=== PATIENT | female | born 2000 | race Caucasian/White ===

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

== ENCOUNTER 2021-02-18 12:01 | Emergency (ER) | payer OTHER, MEDICAID ==
[~2021-02-18] VITALS: Ht 172 cm; Wt 85.7 kg
[~2021-02-18 12:01] MED LIST changes: +CYCL10TA9 PO; -SULF1TAB35 PO; +SULF1TAB38 PO
[2021-02-18 12:35] LABS: BILIRUBIN,URINE NEGATIVE (NEGATIVE); CLARITY,URINE CLEAR; COLOR,URINE YELLOW; GLUCOSE, URINE (UA) NEGATIVE (NEGATIVE); KETONES,URINE TRACE (NEGATIVE); LEUKOCYTE ESTERASE ,URINE 1+ (NEGATIVE); NITRITE,URINE NEGATIVE (NEGATIVE); PH,URINE 6.5 (5-9); PROTEIN,URINE NEGATIVE (NEGATIVE)
[2021-02-18 12:41] LABS: BASOPHILS % (AUTO) 0 % (0-10); EOSINOPHILS % (AUTO) 0 % (0-10); HEMATOCRIT 40 % (35-52); HEMOGLOBIN 12.9 g/dL (11.5-16.0); LYMPHOCYTES # (AUTO) 2.7 10^3/uL (1.0-4.0); LYMPHOCYTES % (AUTO) 27 % (12-44); MEAN CORPUSCULAR HEMOGLOBIN 30 pg (25-34); MEAN CORPUSCULAR HGB CONC 33 g/dL (32-36); MEAN CORPUSCULAR VOLUME 92 fL (80-99); MONOCYTES # (AUTO) 0.7 10^3/uL (0.0-1.0); MONOCYTES % (AUTO) 7 % (0-12); NEUTROPHILS # (AUTO) 6.5 10^3/uL (1.8-7.8); NEUTROPHILS % (AUTO) 65 % (42-75); PLATELET COUNT 250 10^3/uL (130-400); WHITE BLOOD COUNT 10.1 10^3/uL (4.3-11.0)
--- NOTE | 2021-02-18 12:41 | ED GI ---
General Chief Complaint: Abdominal/GI Problems Stated Complaint: ABD CRAMPING EST 6 WKS PREG Nursing Triage Note: Pt ambulatory to triage with visitor. Pt reports approx 7 weeks . Pt c/o generalized abd pain and n/v. Pt reports has had discomfort entire but had a sharp intensified pain this AM. 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 Source of Information: Patient Exam Limitations: No Limitations History of Present Illness Date Seen by Provider: Feb 18, 2021 Time Seen by Provider: 12:40 Initial Comments To ER with reports of diffuse abdominal pain onset this morning accompanied by nausea. She is about 7 weeks G1, P0. No vaginal bleeding. Her mother told her that there is a family history of "high risk pregnancies" and she should get checked out. Timing/Duration: 4-6 Hours Severity/Quality: Moderate Location: Generalized Abdomen Radiation: No Radiation Activities at Onset: None Associated Symptoms: Denies Symptoms Allergies and Home Medications Allergies Coded Allergies: No Known Drug Allergies (Unverified , 09/21/19) Home Medications Cyclobenzaprine HCl 10 Mg Tablet, 10 MG PO Q8H Prescribed by: MAGGIE PARDO on 12/12/20 1017 Sulfamethoxazole/Trimethoprim 1 Each Tablet, 1 EACH PO BID Prescribed by: KENDALL DILL on 09/21/19 0209 Patient Home Medication List Home Medication List Reviewed: Yes Review of Systems Review of Systems Constitutional: see HPI EENTM: No Symptoms Reported Respiratory: No Symptoms Reported Cardiovascular: No Symptoms Reported Gastrointestinal: See HPI Genitourinary: No Symptoms Reported Musculoskeletal: no symptoms reported Skin: no symptoms reported Psychiatric/Neurological: No Symptoms Reported Endocrine: No Symptoms Reported Hematologic/Lymphatic: No Symptoms Reported Past Szydtzw-Dwbfnt-Pddeby Hx Patient Social History Tobacco Use?: Yes Tobacco type used: Cigarettes Smoking Status: Current Someday Smoker Substance type: Marijuana Alcohol Use?: No Pt feels they are or have been: No Immunizations Up To Date Tetanus Booster (TDap): Less than 5yrs PED Vaccines UTD: Yes Seasonal Allergies Seasonal Allergies: Yes (POLLEN) Past Medical History Surgeries: No Respiratory: No Cardiac: No Neurological: No Last Menstrual Period: Jan 03, 2021 Genitourinary: No Gastrointestinal: No Musculoskeletal: No Endocrine: No HEENT: No Cancer: No Psychosocial: No Integumentary: No Blood Disorders: No Physical Exam Vital Signs Vital Signs - First Documented 02/18/21 12:07 Temp 36.1 Pulse 76 Resp 16 B/P (MAP) 126/69 (88) Pulse Ox 99 O2 Delivery Room Air Capillary Refill : Less Than 3 Seconds Height/Weight/BMI Height: '" Weight: lbs. oz. kg; 28.00 BMI Method: General Appearance: WD/WN, no apparent distress Respiratory: no respiratory distress, no accessory muscle use Cardiovascular: regular rate, rhythm, no murmur Gastrointestinal: normal bowel sounds, soft, tenderness Extremities: normal range of motion, non-tender Neurologic/Psychiatric: alert, normal mood/affect, oriented x 3 Skin: normal color, warm/dry Progress/Results/Core Measures Results/Orders Lab Results Laboratory Tests Test 02/18/21 12:26 02/18/21 12:33 Range/Units Urine Color YELLOW Urine Clarity CLEAR Urine pH 6.5 5-9 Urine Specific [place] 1.015 L 1.016-1.022 Urine Protein NEGATIVE NEGATIVE Urine Glucose (UA) NEGATIVE NEGATIVE Urine Ketones TRACE H NEGATIVE Urine Nitrite NEGATIVE NEGATIVE Urine Bilirubin NEGATIVE NEGATIVE Urine Urobilinogen 0.2 < = 1.0 MG/DL Urine Leukocyte Esterase 1+ H NEGATIVE Urine RBC (Auto) NEGATIVE NEGATIVE Urine RBC NONE /HPF Urine WBC 2-5 /HPF Urine Squamous Epithelial Cells 5-10 /HPF Urine Crystals NONE /LPF Urine Bacteria TRACE /HPF Urine Casts NONE /LPF Urine Mucus NEGATIVE /LPF Urine Culture Indicated NO White Blood Count 10.1 4.3-11.0 10^3/uL Red Blood Count 4.34 3.80-5.11 10^6/uL Hemoglobin 12.9 11.5-16.0 g/dL Hematocrit 40 35-52 % Mean Corpuscular Volume 92 80-99 fL Mean Corpuscular Hemoglobin 30 25-34 pg Mean Corpuscular Hemoglobin Concent 33 32-36 g/dL Red Cell Distribution Width 12.6 10.0-14.5 % Platelet Count 250 130-400 10^3/uL Mean Platelet Volume 10.0 9.0-12.2 fL Immature Granulocyte % (Auto) 0 % Neutrophils (%) (Auto) 65 42-75 % Lymphocytes (%) (Auto) 27 12-44 % Monocytes (%) (Auto) 7 0-12 % Eosinophils (%) (Auto) 0 0-10 % Basophils (%) (Auto) 0 0-10 % Neutrophils # (Auto) 6.5 1.8-7.8 10^3/uL Lymphocytes # (Auto) 2.7 1.0-4.0 10^3/uL Monocytes # (Auto) 0.7 0.0-1.0 10^3/uL Eosinophils # (Auto) 0.0 0.0-0.3 10^3/uL Basophils # (Auto) 0.0 0.0-0.1 10^3/uL Immature Granulocyte # (Auto) 0.0 0.0-0.1 10^3/uL Sodium Level 135 135-145 MMOL/L Potassium Level 3.7 3.6-5.0 MMOL/L Chloride Level 105 98-107 MMOL/L Carbon Dioxide Level 22 21-32 MMOL/L Anion Gap 8 5-14 MMOL/L Blood Urea Nitrogen 5 L 7-18 MG/DL Creatinine 0.60 0.60-1.30 MG/DL Estimat Glomerular Filtration Rate 129 BUN/Creatinine Ratio 8 Glucose Level 90 70-105 MG/DL Calcium Level 9.5 8.5-10.1 MG/DL Corrected Calcium 9.3 8.5-10.1 MG/DL Total Bilirubin 0.7 0.1-1.0 MG/DL Aspartate Amino Transf (AST/SGOT) 14 5-34 U/L Alanine Aminotransferase (ALT/SGPT) 14 0-55 U/L Alkaline Phosphatase 61 40-136 U/L C-Reactive Protein High Sensitivity 0.37 0.00-0.50 MG/DL Total Protein 7.1 6.4-8.2 GM/DL Albumin 4.2 3.2-4.5 GM/DL Human Chorionic Gonadotropin, Quant [id number] H <5 MIU/ML My Orders Orders - NESSA FOX NBA PLAYER Cbc With Automated Diff (02/18/21 12:28) Comprehensive Metabolic Panel (02/18/21 12:28) Hs C Reactive Protein (02/18/21 12:28) Ua Culture If Indicated (02/18/21 12:28) Hcg,Quantitative (02/18/21 12:28) Us Ob<14 Wks Sngle W/Transvag (02/18/21 13:33) Vital Signs/I&O 02/18/21 12:07 Temp 36.1 Pulse 76 Resp 16 B/P (MAP) 126/69 (88) Pulse Ox 99 O2 Delivery Room Air Blood Pressure Mean: 88 Departure Impression Primary Impression: Normal IUP (intrauterine ) on ultrasound Disposition: 01 HOME, SELF-CARE Condition: Stable Departure-Patient Inst. Decision time for Depature: 14:49 Referrals: LAMONT CARDENAS DO (PCP/Family) Primary Care Physician Patient Instructions: No Instuctions Given NESSA FOX APRN Feb 18, 2021 12:41
[2021-02-18 12:54] LABS: ALBUMIN 4.2 GM/DL (3.2-4.5); POTASSIUM 3.7 MMOL/L (3.6-5.0)
[2021-02-18 12:56] LABS: CALCIUM 9.5 MG/DL (8.5-10.1)
[2021-02-18 12:57] LABS: TOTAL PROTEIN 7.1 GM/DL (6.4-8.2)
[2021-02-18 12:59] LABS: BILIRUBIN,TOTAL 0.7 MG/DL (0.1-1.0)
[2021-02-18 13:00] LABS: CREATININE SERUM 0.6 MG/DL (0.60-1.30)
[2021-02-18 13:04] LABS: BACTERIA,URINE TRACE /HPF
[2021-02-18 14:52] VITALS: BP 114/62
--- NOTE | 2021-02-18 15:19 | Diagnostic Imaging Report ---
INDICATION: Pelvic pain. There is a single live IUP measuring approximately 6 weeks 4 days gestational age. The heart rate was recorded at 121 bpm. No ernesto-decidual sac hemorrhage is detected. Right and left adnexa are unremarkable. No adnexal mass or free fluid is detected. IMPRESSION: Single live IUP 6 weeks 4 days gestational age. Estimated date of confinement is sonographically is 10/08/2021. Dictated by: Dictated on workstation # [id number]
--- OUTSIDE RECORDS SUMMARY | 2021-02-18 22:29 | XMS REPORT | Clinical Summary ---
Author Author [facility] Organization [facility] Address Unknown Phone Unavailable Care Team Providers Care Radiator Specialist Name Role Phone Simi Hall MD PCP Malini Reno APRN Unavailable Source Comments Some departments are not documenting in the electronic medical record. If you d o not see the information that you expected, contact Release of Information in [facility] [place] [employer] Information Management department at [phone] for further assistan ce in locating additional records.[facility] Allergies No Known Active Allergies Medications End Date Status Medication Sig Dispensed Refills Start Date Active norethindrone ac-eth Take 1 tablet 0 estradiol (LOESTRIN 20 by mouth (21) PO) daily. Active buPROPion XL (WELLBUTRIN Take one 30 tablet 0 0 XL) 150 mg tablet tablet by 9 mouth every morning. Do not crush or chew. Active escitalopram oxalate Take one 30 tablet 0 07/30 (LEXAPRO) 10 mg tablet tablet by 9 mouth at bedtime daily. Active lamoTRIgine (LAMICTAL) Take one 30 tablet 0 150 mg tabletIndications: tablet by 9 depression associated mouth daily. with bipolar disorder Active methylphenidate CD Take one 30 capsule 0 01 (METADATE CD) 20 mg capsule by 9 capsule mouth daily after lunch Earliest Fill Date: 07/30/18 Active methylphenidate CR Take one 30 tablet 0 01 (CONCERTA) 54 mg tablet by 9 tabletIndications: mouth every attention-deficit morning hyperactivity disorder Earliest Fill Date: 07/30/18 Active traZODone (DESYREL) 100 Take one 30 tablet 0 01 /25/201 mg tablet tablet by 9 mouth at bedtime daily. Active Problems Problem Noted Date On oral contraceptive pills for non-contraception ind ication 07/26/2018 Myalgia 07/26/2018 Tetrahydrocannabinol (THC) use disorder, mild, abuse 07/26/2018 Attention deficit hyperactivity disorder (ADHD), comb ined type 07/26/2018 Major depressive disorder in full remission 07/26/19 19 DREA (generalized anxiety disorder) 07/26/2018 Social anxiety disorder 07/26/2018 Parent-child conflict 07/26/2018 Adjustment disorder with disturbance of conduct 07/07 Surgical History Surgery Date Site/Laterality Comments TONSILLECTOMY DENTAL SURGERY Medical History Medical History Date Comments Heavy menstrual period Thyroid disease Family History Medical History Relation Name Comments Cancer Maternal Aunt Cancer-Breast Maternal Aunt Cancer-Colon Maternal Aunt Cancer Maternal Grandmother Cancer-Breast Maternal Grandmother Clotting/bleeding Maternal Disorder Grandmother Heart Disease Maternal Grandmother Melanoma Maternal Grandmother Clotting/bleeding Mother Disorder Heart Disease Mother Cancer-Breast Other Cancer-Ovarian Neg Hx Cancer-Uterine Neg Hx Cervical Cancer Neg Hx Diabetes Neg Hx Hypertension Neg Hx Relation Name Status Comments Maternal Aunt Maternal Aunt Maternal Grandmother Mother Other Social History Date Tobacco Use Types Packs/Day Years Used Current Every Day Smoker Cigarettes Smokeless Tobacco: Never Used Comments Alcohol Use Standard Drinks/Week only drinks on special occasions Yes 4 (1 standard drink = 0.6 o z pure alcohol) Sex Assigned at Date Recorded Not on file Growth Chart Information Head Circum Date Age Height Weight 07/25/2018 18 years 171.5 cm (5' 90.2 kg (198 7.52") lb 12.8 oz) 11/06/2017 17 years 170.2 cm (5' 98.3 kg (216 7") lb 12.8 oz) Last Filed Vital Signs Reading Time Taken Comments Vital Sign 116/58 07/30/2018 7:45 AM BOX MA[employer]OD Blood Pressure 84 07/30/2018 7:45 AM [employer]OX [employer] Pulse 37.1 C (98.8 F) 07/30/2018 7:45 AM [employer]OX [employer] Temperature - - Respiratory Rate 99% 07/25/2018 11:00 PM [employer]OX [employer] Oxygen Saturation - - Inhaled Oxygen Concentration 90.2 kg (198 lb 12.8 oz) 07/25/2018 11:00 PM [employer]OX [employer] Weight 171.5 cm (5' 7.52") 07/25/2018 11:00 PM [employer]OX [employer] Height 30.66 07/25/2018 11:00 PM [employer]OX [employer] Body Mass Index Plan of Treatment Health Maintenance Due Date Last Done Comments HPV VACCINES (1 - 2-dose 2012 series) HIV SCREENING 2016 DTAP/TDAP VACCINES (1 - 2019 Tdap) HEPATITIS C SCREENING 2019 PHYSICAL (COMPREHENSIVE) 2019 EXAM INFLUENZA VACCINE 04/05/2021 MENINGOCOCCAL VACCINE Aged Out No longer eligib le based on patient's age to (ACWY,Menactra) complete this topic Results Not on filefrom Last 3 Months Insurance Type Payer Benefit Subscriber ID Effective Phone Address Plan / Dates Group Indemnity [facility] [id number] 2020-P CHOICE/CHO resent [employer] PLUS AETNA MEDICAID AETNA [id number] 2019-P BETTER resent [facility] [place] 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 necessary based on Dx 07/25/2018 11:54 PM Full Code 07/25/2018 11:54 PM Provider has discussed Code Status No, discussion no t w/Patient or Family? necessary based on Dx
== END 2021-02-18 14:52 | disposition home or self-care (01) ==
LOC: EDUNIT# 12:01 → ER 12:03
DX: O26.891 Other specified pregnancy related conditions, first trimester (principal); R10.84 Generalized abdominal pain; O21.9 Vomiting of pregnancy, unspecified; O99.331 Smoking (tobacco) complicating pregnancy, first trimester; F17.210 Nicotine dependence, cigarettes, uncomplicated; Z3A.01 Less than 8 weeks gestation of pregnancy
CPT/HCPCS: 36415; 76801; 76817; 80053; 81000; 84702; 85025; 86141

== ENCOUNTER → 2021-05-23 | Outpatient (CLI) | payer OTHER, MEDICAID ==
--- NOTE | 2021-05-23 11:38 | Diagnostic Imaging Report ---
INDICATION: survey. TECHNIQUE: Multiple real-time grayscale images were obtained over the gravid uterus. COMPARISON: None FINDINGS: There is a single live fetus in a cephalic presentation. heart rate was recorded at 143 bpm. Placenta is posterior and fundal. Amniotic fluid volume is normal. survey demonstrates kidneys, bladder and stomach to be unremarkable. There is a 4 chamber heart. A three-vessel cord with normal insertion. spine is unremarkable. brain is somewhat limited in evaluation due to position. In addition the heart and face anatomy was somewhat limited as well. Biometrical measurements are as follows: Biparietal 4.70 cm, age 20 weeks 2 days. Head circumference 17.42 cm, age 20 weeks 0 days. Abdominal circumference 15.11 cm, age 20 weeks 3 days. Femur length 3.48 cm, age 21 weeks 0 days. Sonographic estimate age: 20 weeks 3 days. Sonographic estimated date of delivery: 10/07/2021. Estimated Weight: 361 gm (+/- 53 gm). LMP percentile: 76%. heart rate: 143 beats per minute. number: 1 of 1. IMPRESSION: Single live IUP 20 weeks 3 days gestational age. Estimated date of confinement sonographically is 10/07/2021. survey is unremarkable although there is some suboptimal images of the brain, heart and face anatomy due to lie. Follow-up could be performed. Dictated by: Dictated on workstation # [id number]
== END ==
LOC: RAD 10:01
PROVIDERS: ATTEND Obstetrics & Gynecology
DX: Z34.02 Encounter for supervision of normal first pregnancy, second trimester (principal); Z3A.20 20 weeks gestation of pregnancy
CPT/HCPCS: 76805

== ENCOUNTER 2021-08-08 13:45 | Outpatient (CLI) | payer OTHER, MEDICAID ==
[~2021-08-08 13:45] MED LIST changes: +CYCL10TA25 PO; -CYCL10TA9 PO
[2021-08-08 14:44] VITALS: BP 106/57
[2021-08-08] MEDS ORDERED: ONDANSETRON 4 MG (ZOFRAN) ORAL DISSOLVE TAB PO ONE (15:30)
[2021-08-08] MEDS ORDERED: ACETAMINOPHEN 500 MG TAB (TYLENOL) PO ONE (15:30)
[2021-08-08] MEDS ORDERED: LACTATED RINGERS 1,000 ML IV SCH ×3 (15:30→17:30)
[2021-08-08] MEDS ORDERED: PREN1TAB19 PO (17:24)
[2021-08-08] MEDS ORDERED: FAMO-119 PO (17:25)
--- NOTE | 2021-08-09 09:32 | Physician Query-Final Dx ---
[facility]08/09/21 0932: Clinic Account Progress/Dx Physician Query: Please give diagnosis Please include # weeks gestation Date of Service Aug 08, 2021 at 13:45 DWIGHT COX MD 08/09/21 1123: Clinic Account Progress/Dx Physician Query: Please give diagnosis Date of Service 08/09/2021 DIAGNOSIS: Diagnosis: (1) Bacterial vaginosis in (2) 31 weeks gestation of Diagnosis Bacterial vaginosis in Intrauterine at 31 weeks gestation [facility]Aug 09, 2021 09:32 DWIGHT COX MD Aug 09, 2021 11:23
[2021-08-09] MEDS ORDERED: METR-145 PO ×2 (11:17)
== END 2021-08-08 17:35 | disposition home or self-care (01) ==
LOC: WSo 13:45 → LDRP 13:48 → WSo 17:35
PROVIDERS: ATTEND Obstetrics & Gynecology
DX: O23.593 Infection of other part of genital tract in pregnancy, third trimester (principal); B96.89 Other specified bacterial agents as the cause of diseases classified elsewhere; Z3A.31 31 weeks gestation of pregnancy
CPT/HCPCS: 87635; 96360; G0463; 99214

== ENCOUNTER 2021-08-09 09:57 | Outpatient (CLI) | payer OTHER, MEDICAID ==
[~2021-08-09] VITALS: Ht 175.3 cm; Wt 104.8 kg
[~2021-08-09 09:57] MED LIST changes: +FAMO-119 PO; +PREN1TAB19 PO
[2021-08-09 10:25] VITALS: BP 119/60
[2021-08-09 10:27] LABS: BILIRUBIN,URINE NEGATIVE (NEGATIVE); CLARITY,URINE CLOUDY; COLOR,URINE ORANGE; GLUCOSE, URINE (UA) NEGATIVE (NEGATIVE); KETONES,URINE 2+ (NEGATIVE); LEUKOCYTE ESTERASE ,URINE TRACE (NEGATIVE); NITRITE,URINE NEGATIVE (NEGATIVE); PH,URINE 8.5 (5-9); PROTEIN,URINE NEGATIVE (NEGATIVE)
[2021-08-09 10:36] LABS: BACTERIA,URINE NEGATIVE /HPF; WBC,URINE 0-2 /HPF
[2021-08-09] MEDS ORDERED: METR-145 PO ×2 (11:17)
[2021-08-09] MEDS ORDERED: metroNIDAZOLE 500 MG (FLAGYL) TAB PO SCH (21:00)
--- NOTE | 2021-08-12 07:55 | Physician Query-Final Dx ---
Clinic Account Progress/Dx Physician Query: Please give diagnosis Please include # weeks gestation Date of Service Aug 09, 2021 at 09:57 ,JulAug 12, 2021 07:55
== END 2021-08-09 11:30 | disposition home or self-care (01) ==
LOC: WSo 09:57 → LDRP 09:59 → WSo 11:30
PROVIDERS: ATTEND Obstetrics & Gynecology
DX: Z34.90 Encounter for supervision of normal pregnancy, unspecified, unspecified trimester (principal); Z3A.00 Weeks of gestation of pregnancy not specified
CPT/HCPCS: 81000; 87210; G0463; 99213

== ENCOUNTER 2021-09-14 17:56 | Outpatient (CLI) | payer OTHER, MEDICAID ==
[~2021-09-14] VITALS: Ht 175.3 cm; Wt 109.1 kg
[~2021-09-14 17:56] MED LIST changes: +METR-145 PO
[2021-09-14 18:20] LABS: BILIRUBIN,URINE NEGATIVE (NEGATIVE); CLARITY,URINE SL CLOUDY; COLOR,URINE YELLOW; GLUCOSE, URINE (UA) NEGATIVE (NEGATIVE); KETONES,URINE NEGATIVE (NEGATIVE); LEUKOCYTE ESTERASE ,URINE TRACE (NEGATIVE); NITRITE,URINE NEGATIVE (NEGATIVE); PROTEIN,URINE NEGATIVE (NEGATIVE)
[2021-09-14 18:27] LABS: BACTERIA,URINE FEW /HPF; SQUAMOUS EPITHELIAL CELL,UR 0-2 /HPF; WBC,URINE 0-2 /HPF
[2021-09-14 18:30] VITALS: BP 125/66
[2021-09-14] MEDS ORDERED: FAMO40TA6 PO (18:45)
[2021-09-14] MEDS ORDERED: ACETAMINOPHEN 500 MG TAB (TYLENOL) PO PRN (19:00)
[2021-09-14] MEDS ORDERED: LACTATED RINGERS 1,000 ML IV SCH (19:00)
[2021-09-14] MEDS ORDERED: ONDANSETRON 4 MG/2 ML (SDV) Z0FRAN IVP ONE (19:00)
[2021-09-14] MEDS ORDERED: ONDANSETRON 4 MG/2 ML (SDV) Z0FRAN ONE (19:13)
[2021-09-14 20:30] VITALS: BP 123/68
== END 2021-09-14 20:30 ==
LOC: WSo 17:56 → LDRP 17:58 → WSo 20:30
PROVIDERS: ATTEND Obstetrics & Gynecology
DX: Z34.90 Encounter for supervision of normal pregnancy, unspecified, unspecified trimester (principal); Z3A.00 Weeks of gestation of pregnancy not specified
CPT/HCPCS: 81000; 96361; 96374; 99213

== ENCOUNTER 2021-10-03 14:53 | Inpatient (IN) | payer OTHER, MEDICAID ==
[2021-10-03] VITALS (21 sets, daily range): BP systolic 91–151; BP diastolic 46–103
[~2021-10-03] VITALS: Ht 175.3 cm; Wt 111.7 kg
[~2021-10-03 14:53] MED LIST changes: +FAMO40TA6 PO
[2021-10-03 15:26] LABS: BILIRUBIN,URINE NEGATIVE (NEGATIVE); CLARITY,URINE CLEAR; COLOR,URINE YELLOW; GLUCOSE, URINE (UA) NEGATIVE (NEGATIVE); KETONES,URINE NEGATIVE (NEGATIVE); LEUKOCYTE ESTERASE ,URINE NEGATIVE (NEGATIVE); NITRITE,URINE NEGATIVE (NEGATIVE); PROTEIN,URINE NEGATIVE (NEGATIVE)
[2021-10-03 15:48] LABS: BACTERIA,URINE NEGATIVE /HPF; SQUAMOUS EPITHELIAL CELL,UR RARE /HPF; WBC,URINE RARE /HPF
[2021-10-03 15:49] LABS: AMORPHOUS SEDIMENT,UR MOD AMOR PHOSPHATE /LPF
--- NOTE | 2021-10-03 16:49 | History & Physical-OB ---
OB - Chief Complaint & HPI Date/Time Date of Admission: Date of Admission: Date seen by a Provider: Oct 03, 2021 Time Seen by a Provider: 16:35 Chief Complaint/History OB-Reason for Admission/Chief: Onset of Labor Hx : 1 Hx Para: 0 Expected Date of Delivery: Oct 10, 2021 Gestational Age in Weeks: 39 Gestational Age in Days: 0 Other reason for admission: B pos Antibody neg RI RPR NR HBsAg NR HIV NR GC neg GBS neg Admission Nurse Assessment Rev: Yes Allergies and Home Medications Allergies Coded Allergies: No Known Drug Allergies (Unverified , 09/21/19) Patient Home Medication List Home Medication List Reviewed: Yes Famotidine (Famotidine) 40 Mg Tablet, 40 MG PO HS, (Reported) Entered as Reported by: MIK MEDRANO on 09/14/211844 Last Action: Reviewed Vit/Iron Fumarate/FA ( Vitamins Tablet) 1 Each Tablet, 1 EACH PO DAILY, (Reported) Entered as Reported by: YUE ORNELAS on 08/08/211723 Last Action: Reviewed OB - History Hx of Present Care: Yes Ultrasounds: Normal mid trimester US Obstetrical Complications: None Medical Complications: None Obstetrical History Hx : 1 Patient Past Medical History n/a Social History/Family History Alcohol Use: Denies Use Recreational Drug Use: Yes 2nd Hand Smoke Exposure: No Immunizations Influenza Vaccine Up-to-Date: Yes; Up-to-Date Tetanus Booster (TDap): Less than 5yrs OB - Admission Exam Physical Exam Vitals: Vital Signs 10/03/21 15:13 Temp 36.0 Pulse 72 Resp 18 Pulse Ox 96 O2 Delivery Room Air HEENT: NCAT Heart: Rhythm Normal Lungs: Clear Abdomen: Gravid Extremities: Normal Reflexes: Normal Cervical Dilatation: 3cm Effacement: 75% Station: -1 Membranes: Intact Heart Rate: 130's Accelerations: Accelerations Present Decelerations: No Decelerations Short Term Variability: Present Setter Off Variability: Average (6-25) Contractions on Admission: < 5 Minutes Apart Intensity: Firm Labs Laboratory Tests Test 10/03/21 14:50 Range/Units Urine Color YELLOW Urine Clarity CLEAR Urine pH 7.0 5-9 Urine Specific [place] 1.015 L 1.016-1.022 Urine Protein NEGATIVE NEGATIVE Urine Glucose (UA) NEGATIVE NEGATIVE Urine Ketones NEGATIVE NEGATIVE Urine Nitrite NEGATIVE NEGATIVE Urine Bilirubin NEGATIVE NEGATIVE Urine Urobilinogen 0.2 < = 1.0 MG/DL Urine Leukocyte Esterase NEGATIVE NEGATIVE Urine RBC (Auto) NEGATIVE NEGATIVE Urine RBC NONE /HPF Urine WBC RARE /HPF Urine Squamous Epithelial Cells RARE /HPF Urine Crystals PRESENT H /LPF Urine Amorphous Sediment MOD DEMETRI PHOSPHATE H /LPF Urine Bacteria NEGATIVE /HPF Urine Casts NONE /LPF Urine Mucus NEGATIVE /LPF Urine Culture Indicated NO OB - Assessment/Plan/Diagnosis Assessment Assessment: active labor Admission Dx 21 yo @ 39 weeks Active labor GBS neg Admission Status: Inpatient Order (span 2 midnights) Reason for Inpatient Admission: Active labor at 39 weeks Plan Plan: Expectant Management LAMONT CARDENAS DO Oct 03, 2021 16:48
[2021-10-03 16:57] LABS: BASOPHILS % (AUTO) 0 % (0-10); EOSINOPHILS # (AUTO) 0.1 10^3/uL (0.0-0.3); EOSINOPHILS % (AUTO) 0 % (0-10); HEMATOCRIT 40 % (35-52); HEMOGLOBIN 13.1 g/dL (11.5-16.0); LYMPHOCYTES # (AUTO) 3.7 10^3/uL (1.0-4.0); LYMPHOCYTES % (AUTO) 24 % (12-44); MEAN CORPUSCULAR HEMOGLOBIN 29 pg (25-34); MEAN CORPUSCULAR HGB CONC 32 g/dL (32-36); MEAN CORPUSCULAR VOLUME 89 fL (80-99); MONOCYTES % (AUTO) 7 % (0-12); NEUTROPHILS # (AUTO) 10.1 10^3/uL (1.8-7.8); NEUTROPHILS % (AUTO) 68 % (42-75); PLATELET COUNT 283 10^3/uL (130-400)
[2021-10-03] MEDS ORDERED: D5 LR IV SOLUTION 1,000 ML IV SCH (17:00)
[2021-10-03] MEDS ORDERED: fentaNYL 2 mcg/ml BUPIVA 0.125 100 ML ONE (17:12)
[2021-10-03 17:32] LABS: EOSINOPHILS % (MANUAL) 1 %; LYMPHOCYTES % (MANUAL) 23 %; MONOCYTES % (MANUAL) 5 %; NEUTROPHILS % (MANUAL) 71 %; RBC MORPH NORMAL
[2021-10-03] MEDS ORDERED: fentaNYL INJ 100 MCG/2 ML AMP ONE (18:40)
[2021-10-03] MEDS ORDERED: BUPIVACAINE 0.25% 10 ML (SENSORCAINE) VIAL ONE (18:40)
[2021-10-03] MEDS ORDERED: LACTATED RINGERS 1,000 ML IV ONE ×2 (19:15→19:30)
[2021-10-03] MEDS ORDERED: diphenhydrAMINE 50 MG/ML INJ (BENADRYL) IV PRN (19:15)
[2021-10-03] MEDS ORDERED: fentaNYL 2 mcg/ml BUPIVA 0.125 100 ML IV SCH (19:15)
[2021-10-03] MEDS ORDERED: CATHETER FLUSH 10 ML SYR IV PRN (19:15)
[2021-10-03] MEDS ORDERED: ONDANSETRON 4 MG/2 ML (SDV) Z0FRAN IV PRN (19:15)
[2021-10-03] MEDS ORDERED: NALOXONE 0.4 MG/ML 1 ML (NARCAN) VIAL IV PRN (19:15)
[2021-10-03] MEDS ORDERED: OXYTOCIN PRE-MIX DRIP 500 ML IV ONE ×2 (19:24→19:55)
[2021-10-03] MEDS ORDERED: OXYTOCIN PRE-MIX DRIP 500 ML IV SCH (19:45)
[2021-10-03] MEDS ORDERED: LIDOCAINE/EPI 2% 1:200,00 (XYLOCAINE) 10 ML VIAL ONE (19:55)
[2021-10-03] MEDS ORDERED: CATHETER FLUSH 10 ML SYR IV SCH (22:00)
[2021-10-03] MEDS ORDERED: ONDANSETRON 4 MG/2 ML (SDV) Z0FRAN ONE (22:20)
[2021-10-04] VITALS (12 sets, daily range): BP systolic 110–142; BP diastolic 54–78
[2021-10-04] MEDS ORDERED: TETANUS,DIPTH,PERTUSS P/F (BOOSTRIX) 0.5 ML VIAL IM ONE (01:15)
[2021-10-04] MEDS ORDERED: BENZOCAINE/MENTHOL (DERMOPLAST) 56 ML CAN TP PRN (01:15)
[2021-10-04] MEDS ORDERED: DIBUCAINE 1% OINTMENT 30 GM TUBE TOP PRN (01:15)
[2021-10-04] MEDS ORDERED: HYDROcodone/APAP 5 MG/325 MG (LORTAB) TAB PO PRN (01:15)
[2021-10-04] MEDS ORDERED: MEASLES,MUMPS,RUBELLA 1 EA INJ SQ ONE (01:15)
[2021-10-04] MEDS ORDERED: NALOXONE 0.4 MG/ML 1 ML (NARCAN) VIAL IV PRN (01:15)
--- NOTE | 2021-10-04 01:15 | OB Labor & Delivery Record ---
L&D History Date of Service Date of Service: Oct 04, 2021 History Expected Date of Delivery: Oct 10, 2021 Gestational Age in Weeks: 39 Hx : 1 Hx Para: 0 Complications Events: Routine care Operative Indications (Cesarea: N/A-Vaginal Delivery Intrapartal Events: None L&D Stage1 Stage One Onset of Labor - Date: Oct 04, 2021 Monitors and Tracing Monitor Mode: Internal Heart Rate: 145 Monitor Accelerations: Uniform Monitor Decelerations: Variable Station: -1 Assisted Variability: Average (6-10) Short Term Variability: Present Presentation: Vertex Vital Signs VS - Last 72 Hours, by Label 10/03/21 10/03/21 10/03/21 10/03/21 15:13 18:45 18:52 18:55 Temp 36.0 Pulse 72 78 69 80 Resp 18 18 18 18 B/P (MAP) 151/103 (119) 137/63 (87) 135/64 (87) Pulse Ox 96 100 100 O2 Delivery Room Air Room Air Room Air Room Air 10/03/21 10/03/21 10/03/21 10/03/21 18:58 19:00 19:15 19:30 Pulse 66 70 68 67 Resp 18 18 18 18 B/P (MAP) 134/79 (97) 123/71 (88) 126/66 (86) 126/69 (88) Pulse Ox 100 95 99 O2 Delivery Room Air Room Air Room Air Room Air 10/03/21 10/03/21 10/03/21 10/03/21 19:45 20:00 20:15 20:30 Temp 36.2 Pulse 57 71 58 77 Resp 18 18 18 18 B/P (MAP) 115/55 (75) 121/61 (81) 105/49 (67) 132/65 (87) Pulse Ox 99 100 100 99 O2 Delivery Room Air Room Air Room Air Room Air 10/03/21 10/03/21 10/03/21 10/03/21 20:45 21:00 21:15 21:30 Pulse 80 80 80 74 Resp 18 18 18 18 B/P (MAP) 116/63 (80) Pulse Ox 100 100 100 98 O2 Delivery Room Air Room Air Room Air Room Air 10/03/21 10/03/21 10/03/21 10/03/21 21:45 22:00 22:15 22:30 Temp 36.6 Pulse 78 78 80 77 Resp 18 18 18 18 B/P (MAP) 122/75 (91) 124/62 (82) 139/63 (88) 128/64 (85) Pulse Ox 98 99 99 99 O2 Delivery Room Air Room Air Room Air Room Air 10/03/21 10/03/21 10/03/21 22:45 23:00 23:15 Pulse 68 67 55 Resp 18 18 18 B/P (MAP) 114/56 (75) 111/56 (74) 116/55 (75) Pulse Ox 100 100 100 O2 Delivery Room Air Non Rebreather Non Rebreather O2 Flow Rate 15.00 15.00 Rupture of Membranes Spontaneous Ruture of Membrane: No Amniotic Membrane Rupture Time: 1651 Amniotic Membrane Fluid Desc.: Clear Vaginal Bleeding Description: Normal Show Induction/Anesthesia Epidural Cath Placement - Time: 1851 Progress/Notes Patient presented in active labor, AROM performed. Epidural received, and the patient progressed with 4 mu/min dosing of pitocin augmentation to complete and +3 station. L&D Stage2 Stage Two Stage II Date: Oct 04, 2021 Monitors and Tracing Monitor Mode: Internal Heart Rate: 145 Monitor Accelerations: Uniform Monitor Decelerations: Variable Assisted Variability: Average (6-10) Short Term Variability: Present Position: Right Occiput Anterior Presentation: Vertex Cord Descript/Complications Cord Vessel Description: 3 Vessels Delivery Type Infant Delivery Method: Spontaneous Vaginal Anterior Shoulder: Left Episiotomy/Perineal Laceration Laceraction(s)/Extensions: Yes Episiotomy Description: Right Mediolateral Degree (describe repair) RML repaired in usual fashion using 3-0 and 2-0 vicryl suture Condition of Delivery 1 minute Comment: 9 5 minute Comment: 9 Notes Live female , weight 6lbs 2 oz Condition of Infant Condition of : Living Exam: No Observed Abnormalities Resuscitation Resuscitation: N/A - Spontaneous Resp L&D Stage3 Stage Three Stage III Date: Oct 04, 2021 Pictocin Pitocin Administration mu/min: 6 Pitocin ml/hr: 6 Pitocin Administration Comment: 30 mu wide open started after placenta delivered Placenta Delivery Placenta Delivery: Spontaneous Delivery Summary Summary Estimated blood loss (mL): 300 Attending at delivery: Lamont Cardenas DO Condition of Delivery Examined: Cervix Examined, Uterus Explored Post Hemorrhage: No Condition of Mother stable Condition of Infant (s) stable LAMONT CARDENAS DO Oct 04, 2021 01:15
--- NOTE | 2021-10-04 01:16 | Discharge Inst-Women's Service ---
Discharge Inst-Women's Serv Depart Medication/Instructions New, Converted or Re-Newed RX: Transmitted to Pharmacy Final Diagnosis PPD 1 NVD Problems Reviewed?: Yes Consults/Follow Up Additional Follow Up: Yes Orders/Referrals Dr. Cardenas in 6 weeks Activity Activity: Activity as Tolerated Driving Instructions: No Driving for 1 Week NO SMOKING: NO SMOKING Nothing Inside Vagina: No Douching, No [place], No Tampons Diet Discharge Diet: No Restrictions Symptoms to Report to : Bleeding Excessive, Pain Increased, Fever Over 101 Degrees F, Vaginal Bleeding Increase, Questions/Concerns For Any Problems or Questions: Contact Your Physician LAMONT CARDENAS DO Oct 04, 2021 01:16
[2021-10-04] MEDS ORDERED: ACHD5005 PO (01:17)
[2021-10-04] MEDS ORDERED: DIBU30OI TOP (01:17)
[2021-10-04] MEDS ORDERED: IBUP-844 PO (01:17)
[2021-10-04] MEDS ORDERED: BENZ78AE5 TP (01:17)
[2021-10-04] MEDS ORDERED: DOCU100C37 PO (01:17)
[2021-10-04] MEDS: OXYTOCIN PRE-MIX DRIP 500 ML IV SCH ×2 (01:34→02:17)
[2021-10-04] MEDS ORDERED: CATHETER FLUSH 10 ML SYR IV SCH (06:00)
[2021-10-04] MEDS: WITCH HAZEL(TUCKS) 40 EA JAR TOP PRN ×2 (06:55→21:22)
[2021-10-04] MEDS: IBUPROFEN 600 MG (MOTRIN) TAB PO SCH ×3 (06:55→18:42)
[2021-10-04] MEDS: DOCUSATE SODIUM 100 MG (COLACE) CAP PO SCH ×2 (09:06→20:48)
[2021-10-04] MEDS: FERROUS SULF 325 MG (IRON) TAB PO SCH (09:06)
[2021-10-04] MEDS: PRENATAL VITAMIN 1 EA TAB PO SCH (09:06)
--- NOTE | 2021-10-04 14:27 | Anesthesia-Regional Post-Op ---
Regional Patient Condition Mental Status: Alert, Oriented x3 Circulation: Same as Pre-Op Headache: Absent Sensation: Full Recovery Motor Block: Absent Post Op Complications Complications None Follow Up Care/Instructions Patient Instructions None needed. Anesthesia/Patient Condition Patient is doing well, no complaints, stable vital signs, no apparent adverse anesthesia problems. MADELINE HERNÁNDEZ DO Oct 04, 2021 14:27
[2021-10-05 01:33] VITALS: BP 124/78
[2021-10-05] MEDS: IBUPROFEN 600 MG (MOTRIN) TAB PO SCH ×2 (01:33→09:16)
[2021-10-05 06:15] LABS: BASOPHILS % (AUTO) 0 % (0-10); EOSINOPHILS # (AUTO) 0.1 10^3/uL (0.0-0.3); EOSINOPHILS % (AUTO) 1 % (0-10); HEMATOCRIT 38 % (35-52); HEMOGLOBIN 12.2 g/dL (11.5-16.0); LYMPHOCYTES # (AUTO) 3.9 10^3/uL (1.0-4.0); LYMPHOCYTES % (AUTO) 34 % (12-44); MEAN CORPUSCULAR HEMOGLOBIN 29 pg (25-34); MEAN CORPUSCULAR HGB CONC 32 g/dL (32-36); MEAN CORPUSCULAR VOLUME 90 fL (80-99); MEAN PLATELET VOLUME 10.4 fL (9.0-12.2); MONOCYTES # (AUTO) 0.6 10^3/uL (0.0-1.0); MONOCYTES % (AUTO) 6 % (0-12); NEUTROPHILS # (AUTO) 6.7 10^3/uL (1.8-7.8); NEUTROPHILS % (AUTO) 59 % (42-75); PLATELET COUNT 223 10^3/uL (130-400); WHITE BLOOD COUNT 11.4 10^3/uL (4.3-11.0)
--- NOTE | 2021-10-05 09:10 | Postpartum Progress Note ---
Note Note Day # 1 Subjective: Patient is without complaints. Ambulating, voiding. Tolerating a regular diet without nausea or vomiting. Normal lochia. Pain is well controlled with oral pain medications. Objective: Physical Exam: General - Alert and oriented, no apparent distress Abdomen - Soft, appropriately tender to palpation, non-distended, fundus firm at umbilicus Extremities - no edema, negative Mara's bilaterally Assessment: PPD 1 NVD Plan: Routine care. Encourage breast feeding. Encourage ambulation. Ferrous sulfate supplementation. Plan for discharge today Vitals - Labs Vital Signs - I&O Vital Signs Date Time Temp Pulse Resp B/P (MAP) Pulse Ox O2 Delivery O2 Flow Rate FiO2 10/05/21 01:33 36.4 71 18 124/78 (93) 98 Room Air 10/04/21 20:48 36.1 63 18 124/61 (82) 98 Room Air 10/04/21 15:56 36.1 75 18 124/68 (86) 96 Room Air 10/04/21 12:09 36.2 76 16 142/75 (97) 97 Room Air Labs Laboratory Tests 10/05/21 05:30: White Blood Count 11.4H, Red Blood Count 4.28, Hemoglobin 12.2, Hematocrit 38, Mean Corpuscular Volume 90, Mean Corpuscular Hemoglobin 29, Mean Corpuscular Hemoglobin Concent 32, Red Cell Distribution Width 14.0, Platelet Count 223, Mean Platelet Volume 10.4, Immature Granulocyte % (Auto) 0, Neutrophils (%) (Auto) 59, Lymphocytes (%) (Auto) 34, Monocytes (%) (Auto) 6, Eosinophils (%) (Auto) 1, Basophils (%) (Auto) 0, Neutrophils # (Auto) 6.7, Lymphocytes # (Auto) 3.9, Monocytes # (Auto) 0.6, Eosinophils # (Auto) 0.1, Basophils # (Auto) 0.0, Immature Granulocyte # (Auto) 0.1 LAMONT CARDENAS DO Oct 05, 2021 09:09
[2021-10-05] MEDS: FERROUS SULF 325 MG (IRON) TAB PO SCH (09:16)
[2021-10-05] MEDS: PRENATAL VITAMIN 1 EA TAB PO SCH (09:16)
[2021-10-05] MEDS: DOCUSATE SODIUM 100 MG (COLACE) CAP PO SCH (09:16)
[2021-10-05 09:20] VITALS: BP 121/71
== END 2021-10-05 15:10 | disposition home or self-care (01) | DRG 807 ==
LOC: WSo 14:53 → LDRP 14:53 → WSo 16:32 → LDRP 10-04 04:30
PROVIDERS: ADMIT Obstetrics & Gynecology; ATTEND Obstetrics & Gynecology
PROC: 10E0XZZ Delivery of Products of Conception, External Approach (ICD-10-PCS; principal; 2021-10-04)
PROC: 10907ZC Drainage of Amniotic Fluid, Therapeutic from Products of Conception, Via Natural or Artificial Opening (ICD-10-PCS; 2021-10-04)
PROC: 0W8NXZZ Division of Female Perineum, External Approach (ICD-10-PCS; 2021-10-04)
DX: O80 Encounter for full-term uncomplicated delivery (principal); Z37.0 Single live birth; Z3A.39 39 weeks gestation of pregnancy
CPT/HCPCS: 36415; 81000; 85007; 85025; 85027; 86850; 86900; 86901; 99212

== ENCOUNTER 2022-01-22 04:45 | Emergency (ER) | payer OTHER, MEDICAID ==
[~2022-01-22 04:45] MED LIST changes: +ACHD5005 PO; +BENZ78AE5 TP; +DIBU30OI TOP; +DOCU100C37 PO; +IBUP-844 PO
[2022-01-22] MEDS ORDERED: LACTATED RINGERS 1,000 ML IV ONE (05:30)
[2022-01-22 05:32] LABS: BASOPHILS # (AUTO) 0.1 10^3/uL (0.0-0.1); BASOPHILS % (AUTO) 0 % (0-10); EOSINOPHILS # (AUTO) 0.1 10^3/uL (0.0-0.3); EOSINOPHILS % (AUTO) 1 % (0-10); HEMATOCRIT 37 % (35-52); HEMOGLOBIN 12.2 g/dL (11.5-16.0); LYMPHOCYTES # (AUTO) 2.8 10^3/uL (1.0-4.0); LYMPHOCYTES % (AUTO) 24 % (12-44); MEAN CORPUSCULAR HEMOGLOBIN 29 pg (25-34); MEAN CORPUSCULAR HGB CONC 33 g/dL (32-36); MEAN CORPUSCULAR VOLUME 89 fL (80-99); MEAN PLATELET VOLUME 10.4 fL (9.0-12.2); MONOCYTES # (AUTO) 0.7 10^3/uL (0.0-1.0); MONOCYTES % (AUTO) 6 % (0-12); NEUTROPHILS % (AUTO) 69 % (42-75); PLATELET COUNT 262 10^3/uL (130-400); WHITE BLOOD COUNT 11.6 10^3/uL (4.3-11.0)
[2022-01-22 05:36] LABS: ALBUMIN 4.3 GM/DL (3.2-4.5); POTASSIUM 3.4 MMOL/L (3.6-5.0)
[2022-01-22 05:37] LABS: CALCIUM 9.8 MG/DL (8.5-10.1)
[2022-01-22 05:39] LABS: TOTAL PROTEIN 7.2 GM/DL (6.4-8.2)
[2022-01-22 05:40] LABS: BILIRUBIN,URINE NEGATIVE (NEGATIVE); CLARITY,URINE SL CLOUDY; COLOR,URINE YELLOW; GLUCOSE, URINE (UA) NEGATIVE (NEGATIVE); KETONES,URINE 2+ (NEGATIVE); LEUKOCYTE ESTERASE ,URINE 1+ (NEGATIVE); NITRITE,URINE NEGATIVE (NEGATIVE); PROTEIN,URINE NEGATIVE (NEGATIVE)
[2022-01-22 05:40] LABS: BILIRUBIN,TOTAL 0.5 MG/DL (0.1-1.0)
[2022-01-22 05:42] LABS: CREATININE SERUM 0.57 MG/DL (0.60-1.30)
[2022-01-22 05:49] LABS: BACTERIA,URINE TRACE /HPF; SQUAMOUS EPITHELIAL CELL,UR >50 /HPF; WBC,URINE 0-2 /HPF
--- NOTE | 2022-01-22 06:03 | ED GU-Female ---
General Chief Complaint: Abdominal/GI Problems Stated Complaint: STABBING ABD PAIN,11 WEEKS PREG Nursing Triage Note: pt presents reports 11 weeks gestation. reports for the last week she has had intermittent lower abd pain, reports the pain is stabbing. denies vaginal bleeding or discharge. reports intermittent diarrhea. reports intermittent dizziness with standing. Source: patient Exam Limitations: no limitations (KENDALL BELTRAN MD) History of Present Illness Date Seen by Provider: Jan 22, 2022 Time Seen by Provider: 05:05 Initial Comments This 21-year-old young lady presents to the emergency room at about 10 to 11 weeks gestational age with complaints of abdominal pain. She had a positive test about 2 to 3 weeks ago. LMP was November 09. Her abdominal pain started intermittently in the left upper quadrant and across the pelvis more than a week ago. Over the past couple days it has intensified. She has had n ausea and vomiting throughout the . She reports recent loose stools. Over the past couple of days she has also experienced lightheadedness and sensation of impending syncope upon standing. She has not yet had an ultrasound or establish care with an desktop technician. She has an appointment February [address] Phelan at [facility]. She denies any urinary symptoms or vaginal symptoms. She has normal physiologic discharge of . (KENDALL BELTRAN MD) Allergies and Home Medications Allergies Coded Allergies: No Known Drug Allergies (Unverified , 09/21/19) Patient Home Medication List Home Medication List Reviewed: Yes (KENDALL BELTRAN MD) Benzocaine/Menthol (Dermoplast Pain Relieving [place]) 78 Gm Aerosol, 56 EA TP UD PRN for PAIN- SEE INSTRUCTIONS Prescribed by: LAMONT CARDENAS on 10/04/21116 Dibucaine (Dibucaine) 30 Gm Oint, 0 GM TOP UD PRN for PAIN- SEE INSTRUCTIONS Prescribed by: LAMONT CARDENAS on 10/04/21116 Docusate Sodium (Docusate Sodium) 100 Mg Capsule, 100 MG PO BID PRN for CONSTIPATION-1ST LINE Prescribed by: LAMONT CARDENAS on 10/04/21116 Famotidine (Famotidine) 40 Mg Tablet, 40 MG PO HS, (Reported) Entered as Reported by: MIK MEDRANO on 09/14/21 126 Hydrocodone Bit/Acetaminophen (HYDROcodone/APAP 5 MG/325 MG TAB) 1 Tab Tab, 1 EA PO Q4H PRN for PAIN-MODERATE (5-7) Prescribed by: LAMONT CARDENAS on 10/04/21116 Ibuprofen (Ibu) 600 Mg Tablet, 600 MG PO Q6HR Prescribed by: LAMONT CARDENAS on 10/04/21116 Nitrofurantoin Monohyd/M-Cryst (Macrobid 100 mg Capsule) 100 Mg Capsule, 1 TAB PO BID Prescribed by: HERMINIO VILLA on 01/22/22 075 Vit/Iron Fumarate/FA ( Vitamins Tablet) 1 Each Tablet, 1 EACH PO DAILY, (Reported) Entered as Reported by: YUE ORNELAS on 08/08/21 172 Review of Systems Review of Systems Constitutional: no symptoms reported EENTM: no symptoms reported Respiratory: no symptoms reported Cardiovascular: see HPI Gastrointestinal: see HPI Genitourinary: see HPI : Yes LMP: November 09, 2021 Musculoskeletal: no symptoms reported Skin: no symptoms reported Psychiatric/Neurological: No Symptoms Reported Endocrine: No Symptoms Reported Hematologic/Lymphatic: No Symptoms Reported (KENDALL BELTRAN MD) Past Jowtjsn-Beoipc-Uklrbi Hx Patient Social History Tobacco Use?: No Use of E-Cig and/or Vaping dev: No Substance use?: No Substance type: Marijuana Alcohol Use?: No (KENDALL BELTRAN MD) Immunizations Up To Date Tetanus Booster (TDap): Less than 5yrs PED Vaccines UTD: Yes Influenza Vaccine Up-to-Date: Yes; Up-to-Date First/Initial COVID19 Vaccinat: unknown date Second COVID19 Vaccination Eleuterio: unknown date (KENDALL BELTRAN MD) Seasonal Allergies Seasonal Allergies: Yes (POLLEN) (KENDALL BELTRAN MD) Past Medical History Surgeries: No Respiratory: No Cardiac: No Neurological: No Last Menstrual Period: November 09, 2021 Genitourinary: No Gastrointestinal: No Musculoskeletal: No Endocrine: No HEENT: No Cancer: No Psychosocial: No Integumentary: No Blood Disorders: No (KENDALL BELTRAN MD) Physical Exam Vital Signs Vital Signs - First Documented 01/22/22 04:58 Temp 37.0 Pulse 71 Resp 18 B/P (MAP) 129/62 (84) Pulse Ox 98 O2 Delivery Room Air (HERMINIO VILLA MD) Vital Signs Capillary Refill : (KENDALL BELTRAN MD) Height, Weight, BMI Height: '" Weight: lbs. oz. kg; 36.34 BMI Method: General Appearance: WD/WN, no apparent distress HEENT: normal ENT inspection, other (Oropharynx somewhat dry) Neck: normal inspection Cardiovascular: regular rate, rhythm, no edema, no murmur Respiratory: lungs clear, normal breath sounds, no respiratory distress Gastrointestinal: normal bowel sounds, soft; No distended; tenderness (Throughout the left abdomen and across the pelvis, sparing right upper quadrant) Extremities: non-tender, no pedal edema Neurologic/Psychiatric: no motor/sensory deficits, alert, normal mood/affect, oriented x 3 Skin: normal color, warm/dry (KENDALL BELTRAN MD) Progress/Results/Core Measures Suspected Sepsis SIRS Temperature: Pulse: 71 Respiratory Rate: 18 Laboratory Tests 01/22/22 05:07: White Blood Count 11.6H Blood Pressure 129 /62 Mean: 84 Laboratory Tests 01/22/22 05:07: Creatinine 0.57L, Platelet Count 262, Total Bilirubin 0.5 (KENDALL BELTRAN MD) Results/Orders Lab Results Laboratory Tests Test 01/22/22 05:07 01/22/22 05:37 Range/Units White Blood Count 11.6 H 4.3-11.0 10^3/uL Red Blood Count 4.19 3.80-5.11 10^6/uL Hemoglobin 12.2 11.5-16.0 g/dL Hematocrit 37 35-52 % Mean Corpuscular Volume 89 80-99 fL Mean Corpuscular Hemoglobin 29 25-34 pg Mean Corpuscular Hemoglobin Concent 33 32-36 g/dL Red Cell Distribution Width 13.4 10.0-14.5 % Platelet Count 262 130-400 10^3/uL Mean Platelet Volume 10.4 9.0-12.2 fL Immature Granulocyte % (Auto) 0 % Neutrophils (%) (Auto) 69 42-75 % Lymphocytes (%) (Auto) 24 12-44 % Monocytes (%) (Auto) 6 0-12 % Eosinophils (%) (Auto) 1 0-10 % Basophils (%) (Auto) 0 0-10 % Neutrophils # (Auto) 8.0 H 1.8-7.8 10^3/uL Lymphocytes # (Auto) 2.8 1.0-4.0 10^3/uL Monocytes # (Auto) 0.7 0.0-1.0 10^3/uL Eosinophils # (Auto) 0.1 0.0-0.3 10^3/uL Basophils # (Auto) 0.1 0.0-0.1 10^3/uL Immature Granulocyte # (Auto) 0.0 0.0-0.1 10^3/uL Sodium Level 139 135-145 MMOL/L Potassium Level 3.4 L 3.6-5.0 MMOL/L Chloride Level 103 98-107 MMOL/L Carbon Dioxide Level 21 21-32 MMOL/L Anion Gap 15 H 5-14 MMOL/L Blood Urea Nitrogen 6 L 7-18 MG/DL Creatinine 0.57 L 0.60-1.30 MG/DL Estimat Glomerular Filtration Rate 133 BUN/Creatinine Ratio 11 Glucose Level 89 70-105 MG/DL Calcium Level 9.8 8.5-10.1 MG/DL Corrected Calcium 9.6 8.5-10.1 MG/DL Total Bilirubin 0.5 0.1-1.0 MG/DL Aspartate Amino Transf (AST/SGOT) 16 5-34 U/L Alanine Aminotransferase (ALT/SGPT) 22 0-55 U/L Alkaline Phosphatase 54 40-136 U/L C-Reactive Protein High Sensitivity 1.49 H 0.00-0.50 MG/DL Total Protein 7.2 6.4-8.2 GM/DL Albumin 4.3 3.2-4.5 GM/DL Lipase 23 8-78 U/L Human Chorionic Gonadotropin, Quant 115482 H <5 MIU/ML Urine Color YELLOW Urine Clarity SL CLOUDY Urine pH 6.0 5-9 Urine Specific [place] 1.025 H 1.016-1.022 Urine Protein NEGATIVE NEGATIVE Urine Glucose (UA) NEGATIVE NEGATIVE Urine Ketones 2+ H NEGATIVE Urine Nitrite NEGATIVE NEGATIVE Urine Bilirubin NEGATIVE NEGATIVE Urine Urobilinogen 0.2 < = 1.0 MG/DL Urine Leukocyte Esterase 1+ H NEGATIVE Urine RBC (Auto) TRACE-I H NEGATIVE Urine RBC 2-5 H /HPF Urine WBC 0-2 /HPF Urine Squamous Epithelial Cells >50 H /HPF Urine Crystals NONE /LPF Urine Bacteria TRACE /HPF Urine Casts NONE /LPF Urine Mucus MODERATE H /LPF Urine Culture Indicated NO (HERMINIO VILLA MD) My Orders Orders - HERMINIO VILLA MD Acetaminophen Tablet (Tylenol Tablet) (01/22/22 07:15) Diphenhydramine Tablet (Benadryl Tablet) (01/22/22 07:15) Pyridoxine Tablet (Vitamin B-6 Tablet) (01/22/22 07:15) (HERMINIO VILLA MD) Medications Given in ED Current Medications Medications Dose Ordered Sig/Kathya Route Start Time Stop Time Status Last Admin Dose Admin Acetaminophen 1,000 mg ONCE ONCE PO 01/22/22 07:15 01/22/22 07:16 DC 01/22/22 07:49 1,000 MG Diphenhydramine HCl 25 mg ONCE ONCE PO 01/22/22 07:15 01/22/22 07:16 DC 01/22/22 07:48 25 MG Lactated Ringer's 1,000 ml @ 0 mls/hr Q0M ONCE IV 01/22/22 05:30 01/22/22 05:31 DC 01/22/22 05:52 0 MLS/HR Pyridoxine HCl 50 mg ONCE ONCE PO 01/22/22 07:15 01/22/22 07:16 DC 01/22/22 07:49 50 MG (HERMINIO VILLA MD) Vital Signs/I&O 01/22/22 04:58 Temp 37.0 Pulse 71 Resp 18 B/P (MAP) 129/62 (84) Pulse Ox 98 O2 Delivery Room Air (HERMINIO VILLA MD) Vital Signs/I&O Capillary Refill : (KENDALL BELTRAN MD) Blood Pressure Mean: 84 Progress Note : Time: 06:04 Progress Note Urine test is positive. Ultrasound to rule out ectopic is pending. IV fluids are infusing. Labs have been ordered. Care is being transitioned to Dr. Villa for review of work-up. (KENDALL BELTRAN MD) Departure Impression Primary Impression: Normal IUP (intrauterine ) on ultrasound Qualified Codes: Z34.91 - Encounter for supervision of normal , unspecified, first trimester Additional Impression: Lower abdominal pain Disposition: HOME, SELF-CARE Condition: Stable Departure-Patient Inst. Decision time for Depature: 07:51 (HERMINIO VILLA MD) Referrals: ELLIE PHELAN MD (PCP/Family) Primary Care Physician Patient Instructions: Stomach Pain in Early Add. Discharge Instructions: Your labs look reassuring and your is going well. He did have some bacteria in your urine and we do treat that in . Antibiotics were sent to your pharmacy. Today you are 8 weeks and 4 days along based on the ultrasound. Follow-up with your regular doctor including your OB. Take Tylenol and drink plenty of fluids for your pain. I recommend buying [id number] doxylamine and vitamin B6. Take them each separately to help with your nausea. Scripts Nitrofurantoin Monohyd/M-Cryst (Macrobid 100 mg Capsule) 100 Mg Capsule 1 TAB PO BID for 5 Days, #10 CAP Prov: HERMINIO VILLA MD 01/22/22 Work/School Note: Work Release Form Date Seen in the Emergency Department: Jan 22, 2022 Return to Work: Jan 23, 2022 Restrictions: No Restrictions Copy Copies To 1: ELLIE PHELAN MD, JOSHUA T MD Jan 22, 2022 06:03 HERMINIO VILLA MD Jan 22, 2022 07:54
[2022-01-22] MEDS ORDERED: diphenhydrAMINE 25 MG TAB (BENADRYL) PO ONE (07:15)
[2022-01-22] MEDS ORDERED: PYRIDOXINE (VITAMIN B-6) 50 MG TABLET PO ONE (07:15)
[2022-01-22] MEDS ORDERED: ACETAMINOPHEN 500 MG TAB (TYLENOL) PO ONE (07:15)
[2022-01-22] MEDS ORDERED: NITR-65 PO (07:53)
[2022-01-22 08:10] VITALS: BP 110/62
--- NOTE | 2022-01-22 08:10 | Diagnostic Imaging Report ---
INDICATION: Stabbing pelvic pain. Patient is 11 weeks . Uterus measures 9.0 x 7.7 x 8.9 cm. There is a single live IUP measuring 8 weeks 4 days gestation. Heart rate was recorded at 163 bpm. No ernesto-gestational sac hemorrhage is detected. Adnexa are unremarkable. No complicating features are detected. IMPRESSION: Single live IUP 8 weeks 4 days gestational age with an estimated date of confinement sonographically of 08/30/2022. No complicating features are identified. Dictated by: Dictated on workstation # [id number]
== END 2022-01-22 08:10 | disposition home or self-care (01) ==
LOC: EDUNIT# 04:45 → ER 04:51
DX: O26.891 Other specified pregnancy related conditions, first trimester (principal); R10.30 Lower abdominal pain, unspecified; R10.11 Right upper quadrant pain; O23.41 Unspecified infection of urinary tract in pregnancy, first trimester; B96.89 Other specified bacterial agents as the cause of diseases classified elsewhere; Z3A.11 11 weeks gestation of pregnancy
CPT/HCPCS: 36415; 76801; 76817; 80053; 81000; 83690; 84702; 84703; 85025; 86141

== ENCOUNTER → 2022-04-16 | Outpatient (CLI) | payer OTHER, MEDICAID ==
[~2022-04-16] MED LIST changes: +NITR-65 PO
--- NOTE | 2022-04-16 17:40 | Diagnostic Imaging Report ---
INDICATION: Supervision of normal . Anatomy scan. TECHNIQUE: Multiple real-time grayscale images were obtained over the gravid uterus. COMPARISON: None FINDINGS: A single live intrauterine gestation is visualized in cephalic presentation. heart tones measure 136 bpm. The placenta is anterior and not low lying. The BOUCHRA appears normal although no dedicated measurements were performed. The cervix is closed and measures 4.2 cm in length. Biometrical measurements are as follows: Biparietal 4.83 cm, age 20 weeks 5 days. Head circumference 17.74 cm, age 20 weeks 2 days. Abdominal circumference 14.51 cm, age 19 weeks 6 days. Femur length 3.27 cm, age 20 weeks 2 days. Sonographic estimate age: 20 weeks 2 days. Sonographic estimated date of delivery: 09/01/2022. Estimated Weight: 329 gm (+/- 48 gm). LMP percentile: 6%. heart rate: 136 beats per minute. number: 1 of 1. The kidneys, bladder, stomach, brain, four-chamber heart, three-vessel cord, and cord insertion are visualized and have a normal appearance. The upper and lower spine is suboptimally visualized due to position. Views of the adnexa are unremarkable. No adnexal mass or free fluid. IMPRESSION: 1. Single live intrauterine gestation measuring 20 weeks 2 days with an estimated due date of 09/01/2022. These are within range of the clinical dates. Recommend continued follow-up as indicated. 2. Suboptimal visualization of the spine due to position. Otherwise, the anatomy as seen has an unremarkable appearance. Dictated by: Dictated on workstation # [id number]
== END ==
LOC: RAD 09:53
PROVIDERS: ATTEND Nurse Practitioner Women's Health
DX: Z34.02 Encounter for supervision of normal first pregnancy, second trimester (principal); Z3A.20 20 weeks gestation of pregnancy
CPT/HCPCS: 76805

== ENCOUNTER 2022-07-10 13:31 | Outpatient (CLI) | payer OTHER, MEDICAID ==
[~2022-07-10] VITALS: Ht 175.3 cm; Wt 103.4 kg
[2022-07-10 14:01] LABS: BILIRUBIN,URINE NEGATIVE (NEGATIVE); CLARITY,URINE CLEAR; COLOR,URINE YELLOW; GLUCOSE, URINE (UA) NEGATIVE (NEGATIVE); KETONES,URINE NEGATIVE (NEGATIVE); LEUKOCYTE ESTERASE ,URINE NEGATIVE (NEGATIVE); NITRITE,URINE NEGATIVE (NEGATIVE); PH,URINE 8.5 (5-9); PROTEIN,URINE TRACE (NEGATIVE)
[2022-07-10 14:02] VITALS: BP 117/71
[2022-07-10 14:11] LABS: AMORPHOUS SEDIMENT,UR MOD AMOR PHOSPHATE /LPF; BACTERIA,URINE NEGATIVE /HPF
[2022-07-10] MEDS ORDERED: D5 LR IV SOLUTION 1,000 ML IV SCH (14:30)
[2022-07-10] MEDS ORDERED: ACETAMINOPHEN 500 MG TAB (TYLENOL) PO ONE (14:30)
--- NOTE | 2022-07-11 07:57 | Physician Query-Final Dx ---
[facility],07/11/22 0757: Clinic Account Progress/Dx Physician Query: Please give diagnosis Please include # weeks gestation Date of Service Jul 10, 2022 at 13:31 BRENDA MENDOZA MD 07/11/22 0906: Clinic Account Progress/Dx DIAGNOSIS: Diagnosis 33 weeks gestation with labor and gastroschisis and polyhydramnios [facility],JulJul 11, 2022 07:57 BRENDA MENDOZA MD Jul 11, 2022 09:06
== END 2022-07-10 16:52 | disposition home or self-care (01) ==
LOC: WSo 13:31 → LDRP 13:31 → WSo 16:52
PROVIDERS: ATTEND Obstetrics & Gynecology
DX: O99.891 Other specified diseases and conditions complicating pregnancy (principal); R10.9 Unspecified abdominal pain; R10.2 Pelvic and perineal pain; Z3A.33 33 weeks gestation of pregnancy
CPT/HCPCS: 81000; 87088; 96360; G0463; 99214

== ENCOUNTER 2022-07-10 21:47 | Inpatient (IN) | payer OTHER, MEDICAID ==
[~2022-07-10] VITALS: Ht 175.3 cm; Wt 104.3 kg
[2022-07-10 22:15] VITALS: BP 133/66
[2022-07-10] MEDS ORDERED: AMPICILLIN FOR IV USE 2,000 MG in WATER (STERILE) FOR INJECTION 14.8 ML IV ONE (22:15)
[2022-07-10] MEDS ORDERED: MAGNESIUM SULFATE DRIP 500 ML IV ONE (22:23)
[2022-07-10] MEDS ORDERED: MAGNESIUM 4 GM/100 ML IVPB 100 ML IV ONE ×2 (22:23→23:45)
[2022-07-10] MEDS ORDERED: NS (IVPB) 100 ML ONE (22:24)
[2022-07-10] MEDS ORDERED: BETAMETHASONE ACE/NA PHOS 6 MG/ML (CELESTONE SOLUSPAN) ONE (22:24)
[2022-07-10] MEDS ORDERED: MAGNESIUM SULFATE DRIP 500 ML IV SCH (22:30)
[2022-07-10 22:32] LABS: BASOPHILS # (AUTO) 0.1 10^3/uL (0.0-0.1); BASOPHILS % (AUTO) 0 % (0-10); EOSINOPHILS # (AUTO) 0.1 10^3/uL (0.0-0.3); EOSINOPHILS % (AUTO) 1 % (0-10); HEMATOCRIT 35 % (35-52); HEMOGLOBIN 11.4 g/dL (11.5-16.0); LYMPHOCYTES # (AUTO) 3.4 10^3/uL (1.0-4.0); LYMPHOCYTES % (AUTO) 19 % (12-44); MEAN CORPUSCULAR HEMOGLOBIN 29 pg (25-34); MEAN CORPUSCULAR HGB CONC 33 g/dL (32-36); MEAN CORPUSCULAR VOLUME 88 fL (80-99); MEAN PLATELET VOLUME 10.3 fL (9.0-12.2); MONOCYTES % (AUTO) 5 % (0-12); NEUTROPHILS # (AUTO) 13.8 10^3/uL (1.8-7.8); NEUTROPHILS % (AUTO) 75 % (42-75); PLATELET COUNT 267 10^3/uL (130-400); WHITE BLOOD COUNT 18.4 10^3/uL (4.3-11.0)
[2022-07-10 22:46] LABS: BILIRUBIN,URINE NEGATIVE (NEGATIVE); CLARITY,URINE CLOUDY; COLOR,URINE YELLOW; GLUCOSE, URINE (UA) NEGATIVE (NEGATIVE); KETONES,URINE NEGATIVE (NEGATIVE); LEUKOCYTE ESTERASE ,URINE NEGATIVE (NEGATIVE); NITRITE,URINE NEGATIVE (NEGATIVE); PH,URINE 8.5 (5-9); PROTEIN,URINE TRACE (NEGATIVE)
[2022-07-10] MEDS ORDERED: ONDANSETRON 4 MG/2 ML (SDV) Z0FRAN ONE (22:49)
[2022-07-10] MEDS ORDERED: D5 LR IV SOLUTION 1,000 ML IV ONE (22:56)
[2022-07-10 23:00] VITALS: BP 133/66
[2022-07-10] MEDS ORDERED: ONDANSETRON 4 MG/2 ML (SDV) Z0FRAN IVP ONE (23:00)
[2022-07-10 23:01] LABS: BACTERIA,URINE FEW /HPF
[2022-07-10 23:02] LABS: AMORPHOUS SEDIMENT,UR MOD AMOR PHOSPHATE /LPF
[2022-07-10 23:13] LABS: EOSINOPHILS % (MANUAL) 1 %; LYMPHOCYTES % (MANUAL) 15 %; MONOCYTES % (MANUAL) 5 %; NEUTROPHILS % (MANUAL) 79 %; RBC MORPH NORMAL
[2022-07-10 23:15] VITALS: BP 127/60
[2022-07-10] MEDS ORDERED: BUTORPHANOL INJ 2 MG/ML (STADOL) VIAL IV ONE (23:15)
[2022-07-10] MEDS ORDERED: BUTORPHANOL INJ 2 MG/ML (STADOL) VIAL ONE (23:17)
[2022-07-10 23:30] VITALS: BP 132/72
[2022-07-10 23:39] LABS: AMPHETAMINE SCREEN, URINE NEGATIVE (NEGATIVE); BARBITURATE SCREEN URINE NEGATIVE (NEGATIVE); BENZODIAZEPINES SCREEN URINE NEGATIVE (NEGATIVE); CANNABINOID SCREEN, URINE POSITIVE (NEGATIVE); COCAINE SCREEN URINE NEGATIVE (NEGATIVE); METHADONE STAT NEGATIVE (NEGATIVE); OPIATE SCREEN URINE NEGATIVE (NEGATIVE); OXYCODONE STAT NEGATIVE (NEGATIVE); PROPOXYPHENE STAT NEGATIVE (NEGATIVE); TRICYCLIC ANTIDEPRESSANTS SCRE NEGATIVE (NEGATIVE)
[2022-07-10 23:45] VITALS: BP 131/67
[2022-07-10] MEDS ORDERED: AZITHROMYCIN INJECTION 500 MG in NS (IVPB) 250 ML IV ONE (23:45)
--- NOTE | 2022-07-10 23:58 | History & Physical ---
History and Physical Date Seen by Provider: Jul 10, 2022 Time Seen by Provider: 23:46 This patient is a 22-year-old 2 para 1 female currently at 33 and-2/7 Weeks gestation. She was seen earlier today with complaint of right-sided pain pelvic pain and back pain.Her cervical exam was 1/2 cm and 30% effaced. She received a liter of IV fluid and was her observed for between 1 and 2 hours. She showed no cervical change. Pain essentially resolved and she was allowed discharge home.Patient has returned now reporting that her pain began recurring at about 7:00 this evening after having intercourse. She reports having had some spotting or bleeding associated with intercourse. She reports that her pa in is primarily suprapubic and right side. She denies rupture membranes. She had no nausea on presentation. She has no bowel or bladder complaints. She has had no particular problems with this , Other than having been noted to have some significant degree of organ prolapse with her cervix at times outside the introitus. She does have a previous that delivered a 6 pound baby at about 39 weeks gestation and that and delivery were uncomplicated.Patient admits to marijuana use during . Patient denies any other drug use. She denies tobacco use and denies alcohol use Upon readmission patient was found to be 4 cm dilated 80% effaced with relatively bulging bag vertex presentation -1 station. She was eloina about 2 to 4 minutes. She initially was managed with IV fluids a 4 g bolus of magnesium sulfate followed by 2 g an hour which is currently running. She was given 12 mg of betamethasone and 2 g of ampicillin. She will also receive now 500 mg of azithromycin. She did receive a single dose of 1 mg of Stadol for pain relief.Patient does report that her contractions have lessened somewhat and her pain is less intense. However she still is experiencing noticeable Right- sided and pelvic pain that did not necessarily seem to correlate with the occasional contractions now that her noted on the monitor. Patient's allergies are none Medications are vitamins Medical social and surgical histories are per the antepartum record per Dr. Ronald PRADO exam is normal Neck is supple no lymphadenopathy no thyromegaly Abdomen is gravid diffusely relatively mildly tender. There is no guarding there is no rebound there is no rigidity. It does seem that the uterus itself is somewhat tender on palpation however patient and her partner reports that she has had uterine tenderness since about 26 weeks of . Extremities show no clubbing or cyanosis. There is no Homans' sign. Pelvic exam per the labor and delivery nurse on presentation this evening showed a cervix 4 cm dilated 80% effaced with bulging bag -1 station vertex presentation. Cervical exam after little more than an hour and a half had shown no change. Laboratory Tests Test 07/10/22 22:20 Range/Units White Blood Count 18.4 H 4.3-11.0 10^3/uL Red Blood Count 3.95 3.80-5.11 10^6/uL Hemoglobin 11.4 L 11.5-16.0 g/dL Hematocrit 35 35-52 % Mean Corpuscular Volume 88 80-99 fL Mean Corpuscular Hemoglobin 29 25-34 pg Mean Corpuscular Hemoglobin Concent 33 32-36 g/dL Red Cell Distribution Width 12.8 10.0-14.5 % Platelet Count 267 130-400 10^3/uL Mean Platelet Volume 10.3 9.0-12.2 fL Immature Granulocyte % (Auto) 1 % Neutrophils (%) (Auto) 75 42-75 % Lymphocytes (%) (Auto) 19 12-44 % Monocytes (%) (Auto) 5 0-12 % Eosinophils (%) (Auto) 1 0-10 % Basophils (%) (Auto) 0 0-10 % Neutrophils # (Auto) 13.8 H 1.8-7.8 10^3/uL Lymphocytes # (Auto) 3.4 1.0-4.0 10^3/uL Monocytes # (Auto) 1.0 0.0-1.0 10^3/uL Eosinophils # (Auto) 0.1 0.0-0.3 10^3/uL Basophils # (Auto) 0.1 0.0-0.1 10^3/uL Immature Granulocyte # (Auto) 0.1 0.0-0.1 10^3/uL Neutrophils % (Manual) 79 % Lymphocytes % (Manual) 15 % Monocytes % (Manual) 5 % Eosinophils % (Manual) 1 % Blood Morphology Comment NORMAL Urine Color YELLOW Urine Clarity CLOUDY Urine pH 8.5 5-9 Urine Specific [place] 1.020 1.016-1.022 Urine Protein TRACE H NEGATIVE Urine Glucose (UA) NEGATIVE NEGATIVE Urine Ketones NEGATIVE NEGATIVE Urine Nitrite NEGATIVE NEGATIVE Urine Bilirubin NEGATIVE NEGATIVE Urine Urobilinogen 2.0 < = 1.0 MG/DL Urine Leukocyte Esterase NEGATIVE NEGATIVE Urine RBC (Auto) NEGATIVE NEGATIVE Urine RBC NONE /HPF Urine WBC NONE /HPF Urine Squamous Epithelial Cells 2-5 /HPF Urine Crystals PRESENT H /LPF Urine Amorphous Sediment MOD DEMETRI PHOSPHATE H /LPF Urine Bacteria FEW H /HPF Urine Casts NONE /LPF Urine Mucus SMALL H /LPF Urine Culture Indicated YES Urine Opiates Screen NEGATIVE NEGATIVE Urine Oxycodone Screen NEGATIVE NEGATIVE Urine Methadone Screen NEGATIVE NEGATIVE Urine Propoxyphene Screen NEGATIVE NEGATIVE Urine Barbiturates Screen NEGATIVE NEGATIVE Ur Tricyclic Antidepressants Screen NEGATIVE NEGATIVE Urine Phencyclidine Screen NEGATIVE NEGATIVE Urine Amphetamines Screen NEGATIVE NEGATIVE Urine Methamphetamines Screen NEGATIVE NEGATIVE Urine Benzodiazepines Screen NEGATIVE NEGATIVE Urine Cocaine Screen NEGATIVE NEGATIVE Urine Cannabinoids Screen POSITIVE H NEGATIVE Lab work is as noted. Patient does have an elevated white count with a left shift monitor shows a category 1 heart rate tracing with rare variable type decelerations. Contractions are quite irregular and poorly monitored Assessment and plan 33-2/7 weeks gestation with laborIn a patient with a previous term delivery.Patient does have an elevated white blood cell count and a left shift. She is on empiric ampicillin for general coverage as well as GBS prophylaxis. She has received a dose of betamethasone. She will receive a 500 mg dose of azithromycin and is currently on magnesium at 2 g an hour after having received a 4 g bolus. At this point we will continue observation as she has not demonstrated cervical change. Ultrasound is pending to evaluate for placental abruption Or other overt abnormal state of the uterus with a fetus. I have discussed the potential for transfer to high reach operator and NICU care and would entertain pursuing that if patient does demonstrate cervical change or if her contractions intensity and pain increases or does not show some resolution. Allergies and Home Medications Allergies Coded Allergies: No Known Drug Allergies (Unverified , 09/21/19) Patient Home Medication List Home Medication List Reviewed: Yes Vit/Iron Fumarate/FA ( Vitamins Tablet) 1 Each Tablet, 1 EACH PO DAILY, (Reported) Entered as Reported by: YUE ORNELAS on 08/08/21 6834 Discontinued Medications Benzocaine/Menthol (Dermoplast Pain Relieving [place]) 78 Gm Aerosol, 56 EA TP UD PRN for PAIN- SEE INSTRUCTIONS Discontinued Reason: Referral/FU Appt-Addtl Prescribed by: LAMONT CARDENAS on 10/04/21116 Dibucaine (Dibucaine) 30 Gm Oint, 0 GM TOP UD PRN for PAIN- SEE INSTRUCTIONS Discontinued Reason: No Longer Taking Prescribed by: LAMONT CARDENAS on 10/04/21116 Docusate Sodium (Docusate Sodium) 100 Mg Capsule, 100 MG PO BID PRN for CONSTIPATION-1ST LINE Discontinued Reason: No Longer Taking Prescribed by: LAMONT CARDENAS on 10/04/21116 Famotidine (Famotidine) 40 Mg Tablet, 40 MG PO HS, (Reported) Discontinued Reason: No Longer Taking Entered as Reported by: MIK MEDRANO on 09/14/211844 Hydrocodone Bit/Acetaminophen (HYDROcodone/APAP 5 MG/325 MG TAB) 1 Tab Tab, 1 EA PO Q4H PRN for PAIN-MODERATE (5-7) Discontinued Reason: No Longer Taking Prescribed by: LAMONT CARDENAS on 10/04/21116 Ibuprofen (Ibu) 600 Mg Tablet, 600 MG PO Q6HR Discontinued Reason: No Longer Taking Prescribed by: LAMONT CARDENAS on 10/04/21116 Nitrofurantoin Monohyd/M-Cryst (Macrobid 100 mg Capsule) 100 Mg Capsule, 1 TAB PO BID Discontinued Reason: No Longer Taking Prescribed by: HERMINIO VILLA on 01/22/22 0753 BRENDA MENDOZA MD Jul 10, 2022 23:57
[2022-07-11] VITALS (16 sets, daily range): BP systolic 93–140; BP diastolic 56–96
[2022-07-11] MEDS ORDERED: D5 LR IV SOLUTION 1,000 ML IV SCH
[2022-07-11] MEDS ORDERED: BUTORPHANOL INJ 2 MG/ML (STADOL) VIAL IV ONE (01:00)
[2022-07-11] MEDS ORDERED: BUTORPHANOL INJ 2 MG/ML (STADOL) VIAL ONE (01:02)
[2022-07-11] MEDS ORDERED: INDOMETHACIN 25 MG (INDOCIN) CAP PO ONE ×2 (01:11→01:15)
[2022-07-11] MEDS ORDERED: NS (IVPB) 50 ML ONE (02:38)
[2022-07-11] MEDS ORDERED: AMPICILLIN 1,000 MG VIAL (IV USE) ONE (02:38)
[2022-07-11] MEDS ORDERED: AMPICILLIN FOR IV USE 1,000 MG in NS (IVPB) 50 ML IV SCH (02:45)
[2022-07-11] MEDS ORDERED: BETAMETHASONE ACE/NA PHOS 6 MG/ML (CELESTONE SOLUSPAN) IM SCH (09:00)
--- NOTE | 2022-07-11 09:40 | Diagnostic Imaging Report ---
INDICATION: Evaluate for abruption. There is single live fetus in a cephalic presentation. heart rate was recorded at 146 bpm. Placenta is anterior. No retroplacental fluid collection or evidence of abruption is seen. Amniotic fluid volume is elevated at 35 cm. Note is made of a echogenic contents outside of the abdominal wall, raising question of gastroschisis. IMPRESSION: 1. No evidence of abruption. 2. Echogenic contents beyond the anterior abdominal wall, suspicious for gastroschisis. Dictated by: Dictated on workstation # [id number]
== END 2022-07-11 03:55 | disposition short-term general hospital (02) | DRG 832 ==
LOC: WSo 21:47 → LDRP 21:48 → WSo 22:17
PROVIDERS: ADMIT Obstetrics & Gynecology; ATTEND Obstetrics & Gynecology
DX: O60.03 Preterm labor without delivery, third trimester (principal); O99.323 Drug use complicating pregnancy, third trimester; Z3A.33 33 weeks gestation of pregnancy; O36.8330 Maternal care for abnormalities of the fetal heart rate or rhythm, third trimester, not applicable or unspecified; F12.90 Cannabis use, unspecified, uncomplicated
CPT/HCPCS: 36415; 76815; 80306; 81000; 85007; 85027; 87088